=== PATIENT | female | born 1955 | race African-American/Black ===

== ENCOUNTER 2016-07-23 00:39 | Emergency (ER) | payer MEDICAID ==
[~2016-07-23] VITALS: Ht 170.2 cm; Wt 68.0 kg
[~2016-07-23 00:39] MED LIST: ATEN-42 PO
[2016-07-23] MEDS ORDERED: SODIUM CHLORIDE 0.9% 1,000 ML IV ONE (00:57)
[2016-07-23 01:23] LABS: BASOPHILS % 0.4 % (0.0-2.0); EOSINOPHILS % 0.7 % (0.0-5.0); HEMOGLOBIN. 8.7 g/dL (12.0-16.0); LYMPHOCYTES % 7.3 % (20.0-50.0); MEAN CORPUSCULAR HEMOGLOBIN 29.1 pg (28.0-32.0); MEAN CORPUSCULAR HGB CONC 33.7 g/dL (31.0-37.0); MEAN CORPUSCULAR VOLUME 86.5 fL (81.0-99.0); MEAN PLATELET VOLUME 6.6 fl (7.4-10.4); MONOCYTES % 10.2 % (2.0-8.0); NEUTROPHILS % 81.4 % (40.0-76.0); PLATELET 612 x1000/uL (130-400); RED CELL DISTRIBUTION WIDTH 14.7 % (11.6-14.6); WHITE BLOOD COUNT 15.8 x1000/uL (4.5-11.0)
[2016-07-23 01:28] LABS: INR 1.3
[2016-07-23 01:36] LABS: ALANINE AMINOTRANSFERASE 18 IU/L (13-61); ANION GAP 15; CALCIUM 7.8 mg/dL (8.5-10.1); CARBON DIOXIDE 27 mEq/L (21-32); CHLORIDE 90 mEq/L (98-107); INDEX HEMOLYSI 1 (1-3); INDEX ICTERIC 1 (1-4); INDEX LIPEMIC 1 (1-3); NT PRO B-TYPE NATRIURETIC PEP 1039 pg/mL (5-125); TROPONIN I < 0.02 ng/mL (0.00-0.04); UREA NITROGEN BLOOD 12 mg/dL (7-21); eGFR 51 mL/min (>60)
[2016-07-23 01:38] LABS: BG BASE EXCESS 3.4 mmol/L (-2.0-2.0); BG CARBOXYHEMOGLOBIN 0.3 % (0.5-1.5); BG DEOXYHEMOGLOBIN 0.9 % (0.0-5.0); BG FRACTION INSPIRED OXYGEN 40; BG HCO3 ACT 24.6 mmol/L (22.0-26.0); BG METHEMOGLOBIN 0.1 % (0.0-1.5); BG OXYGEN SATURATION 99.1 % (92.0-98.5); BG OXYHEMOGLOBIN 98.7 % (94.0-97.0); BG PCO2 25.9 mmHg (35.0-45.0); BG PH 7.595 (7.350-7.450); BG PO2 146.4 mmHg (75.0-100.0); BG SAMPLE SITE RIGHT BRACHIAL; BG TOTAL HEMOGLOBIN 9.7 g/dL (12.0-18.0); BG VENT MODE NASAL CANNULA
[2016-07-23] MEDS ORDERED: IOHEXOL-350 100 ML BOTTLE ONE (06:00)
[2016-07-23] MEDS ORDERED: SODIUM CHLORIDE 0.9% 10ML VIAL ONE (06:00)
[2016-07-23 07:21] VITALS: BP 119/66
== END 2016-07-23 07:37 | disposition home or self-care (01) ==
LOC: ER 00:45
DX: J98.11 Atelectasis (principal); R06.02 Shortness of breath; F41.9 Anxiety disorder, unspecified; Z90.49 Acquired absence of other specified parts of digestive tract
CPT/HCPCS: 36415; 36600; 71010; 71275; 80053; 82375; 82805; 83605; 83880; 84484; 85025; 85610; 87040; 93005; 99285; A4216; J7030; Q9967; Z7610

== ENCOUNTER 2018-09-13 06:44 | Emergency (ER) | payer MEDICAID ==
[~2018-09-13] VITALS: Ht 167.6 cm; Wt 73.0 kg
[2018-09-13 06:57] VITALS: BP 145/69
[2018-09-13] MEDS: IBUPROFEN 600MG TABLET PO ONE (08:20)
== END 2018-09-13 08:46 | disposition home or self-care (01) ==
LOC: ER 06:44
DX: K04.7 Periapical abscess without sinus (principal); K02.9 Dental caries, unspecified; I10 Essential (primary) hypertension; E11.9 Type 2 diabetes mellitus without complications; Z90.49 Acquired absence of other specified parts of digestive tract; Z88.5 Allergy status to narcotic agent; Z98.890 Other specified postprocedural states
CPT/HCPCS: 99283

== ENCOUNTER → 2025-01-24 | Outpatient (CLI) | payer MEDICARE, MEDICAID ==
[~2025-01-24] MED LIST changes: +ASPI-1160 PO; -ATEN-42 PO; +CLOP-31 PO; +FURO20TA4 PO; +LIP40 PO; +LOSA25TA26 PO; +METF-1149 PO; +METO-396 PO; +SACU1TAB MT; +SPIR25TA PO
== END | disposition home or self-care (01) ==
LOC: CARD 10:54
PROVIDERS: ATTEND Internal Medicine
DX: I35.8 Other nonrheumatic aortic valve disorders (principal); R06.02 Shortness of breath
CPT/HCPCS: 93306